=== PATIENT | male | born 1980 | race Two or more races ===

== ENCOUNTER 2022-01-25 06:45 | Emergency (ER) | payer BC, OTHER ==
[~2022-01-25] VITALS: Ht 167.6 cm; Wt 83.9 kg
[2022-01-25 07:38] LABS: Basophils # (auto) 0 10 ^3/uL (0-0.2); Basophils % (auto) 0.2 % (0.0-2.0); Eosinophils # (auto) 0.1 10 ^3/uL (0-0.8); Eosinophils % (auto) 0.7 % (0.0-7.0); Hematocrit 47.5 % (41.0-53.0); Hemoglobin 16.6 g/dL (13.5-17.5); Lymphocytes # (auto) 0.4 10 ^3/uL (0.4-5.4); Lymphocytes % (auto) 3.2 % (10.0-50.0); Mean Corpuscular Hemoglobin 31.2 pg (28.0-32.0); Mean Corpuscular Hgb Conc. 34.9 g/dL (32.0-36.0); Mean Corpuscular Volume 89.2 fL (80.0-100.0); Monocytes # (auto) 0.7 10 ^3/uL (0-1.3); Monocytes % (auto) 5.3 % (0.0-12.0); Neutrophils # (auto) 12.7 10 ^3/uL (1.6-8.6); Neutrophils % (auto) 90.6 % (37.0-80.0); Red Blood Cells 5.33 10^6/uL (4.5-5.90)
[2022-01-25] MEDS ORDERED: SODIUM CHLORIDE 0.9% 500 ML IV ONE (08:00)
[2022-01-25 08:07] LABS: Albumin 4.2 g/dL (3.4-5.0); BUN/Creatinine Ratio 15.9; Calcium 8.7 mg/dL (8.5-10.1); Magnesium 2.1 mg/dL (1.6-2.6)
[2022-01-25 08:09] LABS: Bilirubin, Total 1.1 mg/dL (0.2-1.0)
[2022-01-25 09:00] VITALS: BP 124/78
[2022-01-25 09:16] LABS: Urine Bacteria FEW /hpf (None Seen); Urine Blood Negative /uL (Negative); Urine Mucus FEW (None Seen); Urine Specific Gravity 1.036 (1.001-1.035); Urine WBC 1 /hpf (0 - 3)
[2022-01-25] MEDS ORDERED: PANT40TA2 PO (09:41)
[2022-01-25] MEDS ORDERED: METR500T PO (09:41)
[2022-01-25] MEDS ORDERED: CEPH-509 PO (09:41)
[2022-01-25] MEDS ORDERED: PANTOPRAZOLE 40 MG TAB PO ONE (10:00)
[2022-01-25] MEDS ORDERED: HYDROcodone-ACET 5/325MG TAB PO ONE (10:00)
== END 2022-01-25 10:11 | disposition home or self-care (01) ==
LOC: ER 06:45
DX: K29.70 Gastritis, unspecified, without bleeding (principal)
CPT/HCPCS: 36415; 74176; 80053; 81001; 83690; 83735; 85025; 96360; 96361; 99284; J7030; J7040